=== PATIENT | female | born 2000 | race Two or more races ===

== ENCOUNTER 2025-02-26 09:59 | Emergency (ER) | payer OTHER ==
[~2025-02-26] VITALS: Ht 160 cm; Wt 74.4 kg
[2025-02-26 11:32] VITALS: BP 122/71; TEMP 97.9; O2SAT 98
== END 2025-02-26 10:37 | disposition home or self-care (01) ==
LOC: ER 09:59
DX: H04.129 Dry eye syndrome of unspecified lacrimal gland (principal)
CPT/HCPCS: A4606; A4663